=== PATIENT | male | born 1975 | race Caucasian/White ===

== ENCOUNTER 2020-08-18 19:25 | Inpatient (IN) | payer OTHER ==
[~2020-08-18] VITALS: Ht 170.2 cm; Wt 83.9 kg
[2020-08-18 19:37] VITALS: Ht 170.2 cm; Wt 83.9 kg
[2020-08-18 20:12] LABS: BASOPHIL % 0.1 % (0-2); PLATELET COUNT 346 x10^3mcL (130-400); RED CELL DISTRIBUTION WIDTH 13.2 % (11.5-14.5)
[2020-08-18 20:17] LABS: CALCIUM 9.4 mg/dL (8.5-10.1); CARBON DIOXIDE 28.9 mmol/L (21-32); CHLORIDE SERUM 98 mmol/L (98-107); CREATININE SERUM 0.8 mg/dL (0.7-1.3); GFR1 > 60 mL/min; GLUCOSE SERUM 124 mg/dL (74-106); POTASSIUM SERUM 4.1 mmol/L (3.5-5.1); SODIUM SERUM 136 mmol/L (136-145)
[2020-08-18 20:24] LABS: ALBUMIN 4.3 g/dL (3.4-5.0); ALKALINE PHOSPHATASE 87 U/L (46-116); ALT/SGPT 46 U/L (16-63); AST/SGOT 18 U/L (15-37); BILIRUBIN TOTAL 0.64 mg/dL (0.20-1.00); LIPASE 95 IU/L (73-393)
[2020-08-18 20:28] LABS: TOTAL PROTEIN, SERUM 8.5 g/dL (6.4-8.2)
[2020-08-18 23:54] VITALS: BP 123/75
[2020-08-19 05:18] VITALS: BP 120/70
[2020-08-19 06:59] LABS: BASOPHIL % 0.2 % (0-2); PLATELET COUNT 292 x10^3mcL (130-400); RED CELL DISTRIBUTION WIDTH 13.5 % (11.5-14.5)
[2020-08-19 07:18] LABS: CARBON DIOXIDE 29.6 mmol/L (21-32); CHLORIDE SERUM 102 mmol/L (98-107); CREATININE SERUM 0.8 mg/dL (0.7-1.3); GFR1 > 60 mL/min; GLUCOSE SERUM 102 mg/dL (74-106); MAGNESIUM 2.1 mg/dL (1.8-2.4); PHOSPHOROUS 3.6 mg/dL (2.5-4.9); POTASSIUM SERUM 3.3 mmol/L (3.5-5.1); SODIUM SERUM 138 mmol/L (136-145)
[2020-08-19 08:56] VITALS: BP 125/70
[2020-08-19 12:29] VITALS: BP 114/72
[2020-08-19 18:06] VITALS: BP 100/57
[2020-08-19 20:57] VITALS: BP 105/60
[2020-08-20 05:36] VITALS: BP 114/73
[2020-08-20 06:41] LABS: BASOPHIL % 0.3 % (0-2); PLATELET COUNT 287 x10^3mcL (130-400); RED CELL DISTRIBUTION WIDTH 13.4 % (11.5-14.5)
[2020-08-20 06:56] LABS: CALCIUM 8.7 mg/dL (8.5-10.1); CARBON DIOXIDE 26.3 mmol/L (21-32); CHLORIDE SERUM 104 mmol/L (98-107); CREATININE SERUM 0.8 mg/dL (0.7-1.3); GFR1 > 60 mL/min; GLUCOSE SERUM 114 mg/dL (74-106); MAGNESIUM 2.3 mg/dL (1.8-2.4); PHOSPHOROUS 3.3 mg/dL (2.5-4.9); POTASSIUM SERUM 3.5 mmol/L (3.5-5.1); SODIUM SERUM 139 mmol/L (136-145)
[2020-08-20 08:27] VITALS: BP 125/73
[2020-08-20 11:23] VITALS: BP 122/70
[2020-08-20 14:40] VITALS: BP 122/70
== END 2020-08-20 15:51 | disposition home or self-care (01) | DRG 854 ==
LOC: ED 19:25 → MU 21:43
PROVIDERS: ADMIT Internal Medicine; ATTEND Internal Medicine
PROC: 0DTJ4ZZ Resection of Appendix, Percutaneous Endoscopic Approach (ICD-10-PCS; principal; 2020-08-18)
DX: A41.9 Sepsis, unspecified organism (principal); K35.80 Unspecified acute appendicitis; Z20.828 Contact with and (suspected) exposure to other viral communicable diseases; F17.210 Nicotine dependence, cigarettes, uncomplicated; K57.30 Diverticulosis of large intestine without perforation or abscess without bleeding; E78.00 Pure hypercholesterolemia, unspecified; Z80.0 Family history of malignant neoplasm of digestive organs
CPT/HCPCS: G0378; J0131; J0690; J2001; J2250; J2270; J2405; J2543; J3010; J3490; J7030